=== PATIENT | male | born 1980 | race Caucasian/White ===

== ENCOUNTER 2019-05-25 01:00 | Observation (INO) | payer BC, SELFPAY ==
[2019-05-25] VITALS (20 sets, daily range): BP systolic 107–129; BP diastolic 52–86; PULSE 52–73; RESP 10–20; TEMP 35.7–36.8; O2SAT 94–100; BMI 29.9
--- NOTE | 2019-05-25 | DI.RAD.S_ITS ---
PROCEDURE: XR CHOLANGIOGRAM OPERATIVE INDICATIONS: cholagiogram COMPARISON: None. FINDINGS: Biliary ducts: The surgeon injected contrast into the biliary ducts after cannulation of the cystic duct stump. Visualized intra- and extrahepatic bile ducts are normal in caliber, without strictures. No intraluminal filling defects to suggest retained ductal stones or sludge. No evidence for iatrogenic ductal injury. Duodenum: Contrast flows promptly through the sphincter of Oddi into the duodenum, which appears normal in caliber. IMPRESSION: Expected intraoperative appearance. Dictated by: Iván Sun M.D. on 05/26/2019 at 10:21 Approved by: Iván Sun M.D. on 05/26/2019 at 10:22
--- NOTE | 2019-05-25 | PATH_ITS ---
[facility] Accession Number: [id number] . 01 Material submitted: . gallbladder - GALLBLADDER . 01 Clinical history: . SEVERE ABDOMINAL PAIN . 02 Diagnosis: Gallbladder, Cholecystectomy: Chronic cholecystitis with cholelithiasis. No evidence of dysplasia or malignancy. MRV 05/28/2019 1217 Local . 02 Electronically signed: . Edna Briggs MD, Pathologist NPI- [id number] . 01 Gross description: . Received in formalin, labeled gallbladder, is an intact gallbladder (length-10.0 cm, diameter-3.0 cm) with green smooth shiny serosa and a patent cystic duct. A lymph node (0.5 x 0.4 x 0.2 cm) is identified. The lumen contains dark green viscous bile and multiple bright yellow smooth friable calculi (10.0 x 6.5 x 0.8 cm in aggregate). The mucosa is green, smooth and flat. The wall is up to 0.1 cm thick. No nodules, masses or lesions are identified. Section code: (A1) cystic duct resection margin and two serial sections from the body; (A2)two longitudinal sections from the fundus; (A3) one intact lymph node. ([id number]) /MRV 05/27/2019 1538 Local . 02 Pathologist provided ICD-10: K80.60 . 02 CPT . 513447 Performed at: 01 [facility] [address] [place] [address], [place], [place] [id number] MD Romeo Dela Cruz MD Phone: [phone] Performed at: [facility] [address] [place], [place] [id number] MD Edna Briggs MD Phone: [phone]
--- NOTE | 2019-05-25 01:06 | ED_ITS ---
HPI - Abdominal Pain General Chief Complaint: Abdominal Pain Stated Complaint: severe abdominal pain Time Seen by Provider: 05/25/19 01:00 Source: patient and family Mode of arrival: Ambulatory Limitations: no limitations History of Present Illness HPI narrative: 30-year-old male nonsmoker with noncontributory medical history presents with his significant other in the chief complaint of severe right upper quadrant pain with radiation to his back that started after drinking a beer at 4:00 p.m.. He has had a few episodes of right upper quadrant pain and suspicion of gallbladder disease but no definitive diagnosis. He denies fever, chills or jaundice. He denies any history of surgery MD complaint: abdominal pain Onset (ago): hour(s) Pain Consistency: constant Location: RUQ Severity: moderate Quality: cramping Radiation: back Relieving factors: nothing Exacerbating factors: eating Associated symptoms: nausea Related Data Home Medications Medication Instructions Recorded Confirmed No Known Home Medications 05/25/19 05/25/19 Allergies Allergy/AdvReac Type Severity Reaction Status Date / Time No Known Drug Allergies Allergy Verified 05/25/19 01:25 Review of Systems Constitutional Constitutional: Denies chills, Denies fatigue, Denies fever(s), Denies frequent falls, Denies lethargy and Denies weakness Eyes Eyes: Denies change in vision, Denies eye discharge, Denies irritation and Denies loss of vision ENT Ears, Nose, Mouth, and Throat: Denies change in voice, Denies dizziness, Denies neck pain, Denies sore throat and Denies throat swelling Cardiovascular Cardiovascular: Denies chest pain, Denies irregular heart rhythm, Denies lightheadedness, Denies palpitations, Denies dyspnea, Denies dyspnea on exertion and Denies orthopnea Respiratory Respiratory: Denies cough, Denies dyspnea, Denies dyspnea on exertion and Denies wheezing Gastrointestinal Gastrointestinal: Reports abdominal pain, Denies change in bowel habits, Denies diarrhea, Denies nausea and Denies vomiting Genitourinary Genitourinary: Denies hematuria, Denies flank pain, Denies urinary incontinence and Denies urinary urgency Musculoskeletal Musculoskeletal: Denies back pain, Denies muscle weakness, Denies neck pain, Denies numbness and Denies tingling Integumentary/Breasts Skin/Breast: Denies pruritus, Denies erythema, Denies rash and Denies wounds Neurologic Neurologic: Denies behavioral changes, Denies confusion, Denies dizziness, Denies frequent falls, Denies loss of vision, Denies numbness, Denies tingling and Denies weakness Psychiatric Psychiatric: Denies anxiety, Denies behavioral changes, Denies confusion, Denies depression, Denies homicidal ideation and Denies suicidal ideation Endocrine Endocrine: Denies fatigue, Denies flushing and Denies palpitations Hematologic/Lymphatic Hematologic/Lymphatic: Denies easy bruising Allergic/Immunologic Allergic/Immunologic: Denies urticaria, Denies throat swelling and Denies wheezing PFSH Social History Smoking Status: Never smoker Social History Smoking Status: Never smoker Exam Narrative Exam Narrative: GENERAL: [38] year old patient appears stated age. Well- nourished, well-developed patient, in mild distress. HEAD: Atraumatic. Normocephalic. EYES: Pupils equal round and reactive. Extraocular motions intact. No scleral icterus. No injection or drainage. ENT: Nose without bleeding, purulent drainage. Throat without erythema, tonsi llar hypertrophy or exudate. Airway patent. NECK: Trachea midline. Non tender CARDIOVASCULAR: Regular rate and rhythm without murmurs, gallops, or rubs. RESPIRATORY: Clear to auscultation. Breath sounds equal bilaterally. No wheezes, rales, or rhonchi. GASTROINTESTINAL: Abdomen soft, severe right upper quadrant pain, nondistended. EXTREMITIES: No edema or joint tenderness. BACK: Nontender without deformity or crepitance. No flank tenderness. NEURO: AOx3. SKIN: No rash or erythema of visible areas Initial Vital Signs Initial Vital Signs: Vital Signs Temperature 98.2 F 05/25/19 01:26 Pulse Rate 67 05/25/19 01:26 Respiratory Rate 14 05/25/19 01:26 Blood Pressure 124/86 05/25/19 01:26 Pulse Oximetry 98 05/25/19 01:26 Course Orders Ordered: ED Orders 05/25/19 01:15 Complete Blood Count AUTO DIFF Stat Comprehensive Metabolic Panel Stat Lactate (Lactic Acid) Stat Lipase Stat 05/25/19 01:37 US abdomen limited Stat Hydromorphone HCl (Dilaudid) 0.5 mg IV Q4HR PRN PRN Reason: Pain, Severe (7-10) Sodium Chloride (Normal Saline 0.9%) 1,000 mls @ 150 mls/hr IV CONT JAMES Last Infusion: 05/25/19 02:14 Dose: 400 mls/hr Documented by: Admin: 05/25/19 01:53 Dose: 150 mls/hr Documented by: LONDON Ondansetron HCl (Zofran) 4 mg IV Q4HR PRN PRN Reason: Nausea And Vomiting Discontinued Medications Hydromorphone HCl (Dilaudid) 0.5 mg IV NOW ONE Stop: 05/25/19 01:36 Last Admin: 05/25/19 01:54 Dose: 0.5 mg Documented by: LONDON Piperacillin/Tazobactam/Dextrose (Zosyn) 3.375 gm in 50 mls @ 100 mls/hr IV NOW ONE Stop: 05/25/19 02:28 Last Admin: 05/25/19 02:08 Dose: 100 mls/hr Documented by: LONDON Ondansetron HCl (Zofran) 4 mg IV NOW ONE Stop: 05/25/19 01:36 Last Admin: 05/25/19 01:54 Dose: 4 mg Documented by: LONDON Consultations Consultation #1: Dr. Lord happy to accept, will see patient before 0700 Vital Signs Vital signs: Vital Signs - 8 hr 05/25/19 01:26 Temperature 98.2 F Pulse Rate 67 Respiratory Rate 14 Blood Pressure 124/86 Pulse Oximetry 98 MDM - Abdominal Pain Lab Data Result diagrams: 05/25/19 01:15 05/25/19 01:15 Labs: Lab Results 05/25/19 05/25/19 05/25/19 Range/Units 01:15 01:15 01:15 WBC 6.0 (4.5-11.0) X10^3/uL RBC 4.93 (4.5-5.9) X10^6/uL Hgb 14.4 (13.5-17.5) g/dL Hct 41.9 (41-53) % MCV 85.0 (80-100) fL MCH 29.1 (26-34) PG MCHC 34.3 (30-36) % RDW 12.9 (11.6-14.8) % Plt Count 243 (150-400) X10^3/uL Neut % (Auto) 64.3 (50-75) % Lymph % (Auto) 21.3 L (25-40) % Sharkey % (Auto) 10.2 (3-14) % Eos % (Auto) 3.8 (2-4) % Baso % (Auto) 0.4 (0-2) % Neut # (Auto) 3900 (5839-4898) /uL Lymph # (Auto) 1300 (9906-2576) /uL Sharkey # (Auto) 600 (0-900) /uL Eos # (Auto) 200 (0-450) /uL Baso # (Auto) 0 (0-100) /uL Sodium 139 (137-145) mmol/L Potassium 4.0 (3.4-5.1) mmol/L Chloride 105 (98-107) mmol/L Carbon Dioxide 24 (22-32) mmol/L BUN 14 (9-20) mg/dL Creatinine 0.70 (0.66-1.25) mg/dL Estimated GFR > 60.0 (>60) mL/min BUN/Creatinine Ratio 20.0 (6-22) Glucose 129 H (70-100) mg/dL Lactate 1.1 (0.7-2.1) mmol/L Calcium 9.3 (8.4-10.2) mg/dL Total Bilirubin 2.2 H (0.2-1.3) mg/dL AST 439 H (17-59) IU/L ALT 330 H (21-72) IU/L Alkaline Phosphatase 66 (38-126) U/L Total Protein 7.3 (6.3-8.2) g/dL Albumin 4.2 (3.5-5.0) g/dL Globulin 3.1 (1.7-4.1) g/dL Albumin/Globulin Ratio 1.4 (1.0-2.8) Lipase 90 (23-300) U/L Imaging Data US - abdomen: Radiologist's impression: GB with multiple stones, non moving. No wall thickening Discharge Plan Departure Patient Disposition: Admitted As Inpatient Clinical Impression: Cholelithiasis Qualifiers: Cholelithiasis location: other site Biliary obstruction: with biliary obs truction Qualified Code(s): K80.81 - Other cholelithiasis with obstruction Admit Date/Time: 05/25/19 02:00 Admit Provider: Alex Lord
[2019-05-25 01:31] LABS: Add Manual Diff / Slide Review NO; Basophils Absolute Auto 0 /uL (0-100); Basophils Percent Auto 0.4 % (0-2); Eosinophils Absolute Auto 200 /uL (0-450); Eosinophils Percent Auto 3.8 % (2-4); Hematocrit 41.9 % (41-53); Hemoglobin 14.4 g/dL (13.5-17.5); Lymphocytes Absolute Auto 1300 /uL (1100-4500); Lymphocytes Percent Auto 21.3 % (25-40); Mean Corpuscular HGB Conc 34.3 % (30-36); Mean Corpuscular Hemoglobin 29.1 PG (26-34); Monocytes Absolute Auto 600 /uL (0-900); Monocytes Percent Auto 10.2 % (3-14); Neutrophils Absolute Auto 3900 /uL (1500-7000); Neutrophils Percent Auto 64.3 % (50-75); Platelet Count 243 X10^3/uL (150-400); Red Blood Cell Count 4.93 X10^6/uL (4.5-5.9); Red Cell Distribution Width 12.9 % (11.6-14.8)
[2019-05-25 01:37] LABS: Lactate (Lactic Acid) 1.1 mmol/L (0.7-2.1)
--- NOTE | 2019-05-25 01:37 | DI.US.S_ITS ---
PROCEDURE: US ABDOMEN LIMITED INDICATIONS: POST PRANDIAL RIGHT UPPER QUADRANT PAIN TECHNIQUE: Real-time focused scanning was performed of the abdomen, with image documentation. COMPARISON: None. FINDINGS: Liver is sonographically normal. Numerous non-mobile gallstones are noted in the gallbladder. There is a 1.2 cm stone in the gallbladder neck which is nonmobile. No gallbladder wall thickening with gallbladder wall measuring 1.4 mm. No pericholecystic fluid. Positive sonographic Thomas sign noted. Biliary tree is nondilated with, bile duct measuring 4.4 mm. Pancreas is sonographically normal. IMPRESSION: Cholelithiasis including a 1.2 cm nonmobile stone in the gallbladder neck. No sonographic evidence of cholecystitis identified in the current study although positive sonographic Thomas sign is reported. If there is clinical concern for cholecystitis, then nuclear medicine HIDA scan should be considered for further evaluation. Dictated by: Misty Pope MD, PhD on 05/25/2019 at 8:29 Approved by: Misty Pope MD, PhD on 05/25/2019 at 8:32
[2019-05-25 01:38] LABS: Alanine Aminotransferase 330 IU/L (21-72); Albumin 4.2 g/dL (3.5-5.0); Albumin Globulin Ratio 1.4 (1.0-2.8); Alkaline Phosphatase 66 U/L (38-126); Aspartate Aminotransferase 439 IU/L (17-59); Bilirubin Total 2.2 mg/dL (0.2-1.3); Blood Urea Nitrogen 14 mg/dL (9-20); Calcium 9.3 mg/dL (8.4-10.2); Carbon Dioxide 24 mmol/L (22-32); Chloride 105 mmol/L (98-107); Estimated Glomerular Filt Rate > 60.0 mL/min (>60); Globulin 3.1 g/dL (1.7-4.1); Glucose 129 mg/dL (70-100); HEMOLYSIS < 15 (0-50); Lipase 90 U/L (23-300); Sodium 139 mmol/L (137-145); Total Protein 7.3 g/dL (6.3-8.2)
[2019-05-25] MEDS: SODIUM CHLORIDE 0.9% 1,000 ML 150 ML IV ×3 (01:53→14:12)
[2019-05-25] MEDS: ONDANSETRON 4 MG/2 ML INJ IV (01:54)
[2019-05-25] MEDS: HYDROMORPHONE 0.5 MG INJ IV (01:54)
[2019-05-25] MEDS: PIPERACILLIN-TAZO 3.375 GM/50 ML FROZ.PIGGY IV ×2 (02:08→19:26)
--- NOTE | 2019-05-25 06:47 | PC.NURSE ---
Pt admitted to unit as AxOx3, vitals stable. NS@150mL/hr running as ordered. Pain and nausea was controlled with the dilaudid given in the ER; pt denying need for pain med this morning. Independent in room. Kept NPO
[2019-05-25] MEDS: MORPHINE 2 MG/ML INJ IV ×2 (07:35→18:47)
--- NOTE | 2019-05-25 12:15 | PM.HP.1 ---
History of Present Illness History of Present Illness Date Patient Seen: 05/25/19 Time Patient Seen: 12:18 Chief complaint: severe abdominal pain Narrative: 38-year-old male history of biliary colic presents emergency room with acute onset of abdominal pain. He has been having frequent epigastri/RUQ pain following meals. Yesterday developed persistent right upper quadrant pain associated with nausea no vomiting or diarrhea. Occurred after eating fatty meal has improved somewhat with pain medication. Patient History Social History Smoking Status: Never smoker Family & Social History Social History: Prior Living Arrangements House Safety & Behavioral: Feels Safe in Current Yes Environment Been Physically Hurt or No Threatened By a Person Suicidal Ideation Description None Suicide Plan Description No Plan Tobacco & Substance use: Smoking Status Never smoker alcohol intake frequency a few times a week Substance Use Type does not use Meds Home Medications and Allergies Home Medications Medication Instructions Recorded Confirmed Type No Known Home Medications 05/25/19 05/25/19 History Allergies Allergy/AdvReac Type Severity Reaction Status Date / Time No Known Drug Allergies Allergy Verified 05/25/19 01:25 Review of Systems Review of Systems ROS Unobtainable: All systems reviewed & are unremarkable except as noted in HPI and below Exam Vital Signs (past 8 hours): - 05/25/19 07:47 05/25/19 08:37 05/25/19 12:00 Temperature 97.9 F 98.1 F Pulse Rate 56 L 64 Respiratory Rate 16 16 16 Blood Pressure 110/69 129/68 Pulse Oximetry 96 97 Oxygen Delivery Method Room Air Narrative Exam Narrative: General-adult male no acute distress, well nourished HEENT-moist mucous membranes, no scleral icterus Neck-supple with full range of motion, no lymphadenopathy Chest- no labored respirations, clear to auscultation bilaterally Cardiac-regular rate and rhythm Abdomen +Thomas's sign. No gaurding Extremities-no edema, warm well perfused Neurological-alert and oriented x 3. No focal deficits Skin-normal temperature and turgor, no rashes or ulcers Objective Labs Result Diagrams: 05/25/19 01:15 05/25/19 01:15 Labs: Laboratory Results - last 24 hr 05/25/19 05/25/19 05/25/19 01:15 01:15 01:15 WBC 6.0 RBC 4.93 Hgb 14.4 Hct 41.9 MCV 85.0 MCH 29.1 MCHC 34.3 RDW 12.9 Plt Count 243 Neut % (Auto) 64.3 Lymph % (Auto) 21.3 L [place] % (Auto) 10.2 Eos % (Auto) 3.8 Baso % (Auto) 0.4 Neut # (Auto) 3900 Lymph # (Auto) 1300 [place] # (Auto) 600 Eos # (Auto) 200 Baso # (Auto) 0 Sodium 139 Potassium 4.0 Chloride 105 Carbon Dioxide 24 BUN 14 Creatinine 0.70 Estimated GFR > 60.0 BUN/Creatinine Ratio 20.0 Glucose 129 H Lactate 1.1 Calcium 9.3 Total Bilirubin 2.2 H AST 439 H ALT 330 H Alkaline Phosphatase 66 Total Protein 7.3 Albumin 4.2 Globulin 3.1 Albumin/Globulin Ratio 1.4 Lipase 90 Assessment & Plan Assessment and plan (1) Acute cholecystitis: Current visit: Yes Status: Acute Assessment & Plan narrative: 30-year-old male with a history of biliary colic presents to the emergency room with acute cholecystitis. He has right upper quadrant pain with positive Thomas sign and an ultrasound demonstrating multiple gallstones including within the neck of the gallbladder. -NPO -Zosyn -Laparoscopic cholecystectomy today. We discussed the risks of the operation including bleeding infection need for conversion to open procedure need for further procedure or operation. His questions have been answered and he is agreement with this plan
[2019-05-25 12:47] LABS: Alanine Aminotransferase 574 IU/L (21-72); Albumin 4.1 g/dL (3.5-5.0); Albumin Globulin Ratio 1.3 (1.0-2.8); Alkaline Phosphatase 82 U/L (38-126); Aspartate Aminotransferase 561 IU/L (17-59); BUN Creatinine Ratio 15.7 (6-22); Bilirubin Total 3.6 mg/dL (0.2-1.3); Blood Urea Nitrogen 11 mg/dL (9-20); Calcium 8.9 mg/dL (8.4-10.2); Carbon Dioxide 28 mmol/L (22-32); Chloride 107 mmol/L (98-107); Estimated Glomerular Filt Rate > 60.0 mL/min (>60); Globulin 3.1 g/dL (1.7-4.1); Glucose 103 mg/dL (70-100); HEMOLYSIS < 15 (0-50); Potassium 4.3 mmol/L (3.4-5.1); Sodium 139 mmol/L (137-145); Total Protein 7.2 g/dL (6.3-8.2)
--- NOTE | 2019-05-25 12:56 | PC.NURSE ---
Day Shift- Pt A&OX4, able to make needs known using call light. Indep in room with steady gait. Ambulated in halls indep using IV pole with his girlfriend Akua by his side. Pain 10 this AM to SUHAS Barajsa, requesting med. PRN Morphine given at 0735 with good effect. Denies nausea. NPO, mouth swabs and lip balm given. Last solid foods was 05/24 at 1600 as well as liquids. Voiding qs. Aware of potential OR time of 1700 today.
--- NOTE | 2019-05-25 15:14 | CM.DANOTE ---
Discharge Planning/Care Management DCP: assessment: case received, EMR reviewed and case discussed in Team Rounds. 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 Surgery is planned for this afternoon: planning for a laproscopic cholecystectomy. P: Check in with pt tomorrow prn and follow for any d/c needs that may arise CM Discharge Assessment Start: 05/25/19 15:11 Freq: Status: Active Protocol: Document 05/25/19 15:13 ITV (Rec: 05/25/19 15:13 ITV [id number]) Discharge Planning Assessment Advance Directives? No History Provided By Medical Record Prior Living Arrangements House Independent with ADL's Yes Is patient alert and oriented? Yes Review Status In Process
[2019-05-25] MEDS: LACTATED RINGERS 1,000 ML 42 ML IV (19:15)
--- NOTE | 2019-05-25 19:56 | SUR.OPER ---
Supine on padded OR bed, head on pillow, arms secured on padded arm boards at <90 degrees abduction, legs uncrossed, safety belt at thigh, tape over blanket over lower legs.
[2019-05-25] MEDS: IOPAMIDOL 15 ML VIAL INJ (20:03)
[2019-05-25] MEDS: BUPIVACAINE 0.5% (PF) VIAL 30 ML INJ (20:04)
--- NOTE | 2019-05-25 20:58 | PM.OP.1 ---
Operative Date/Time/Diagnoses Date of procedure: 05/25/19 Time of procedure: 20:58 Pre-op diagnosis: Acute cholecystitis Hyperbilirubinemia Post-op diagnosis: same Procedure & Clinicians Procedure: Laparoscopic cholecystectomy with intraoperative cholangiogram Same procedure as scheduled: Yes Indications: 38-year-old male with history of biliary colic admitted with acute cholecystitis. He had hyperbilirubinemia there was no stone identified within the common bile duct or ductal dilatation however there was a stone lodged within the neck of the gallbladder. Surgeon: Alex Lord Click Yes if Unassisted: Yes Anesthesia Type: General Operative Notes Findings: No evidence of common bile duct obstruction by cholangiogram Specimen(s): other (Gallbladder) Estimated Blood Loss (mL): 10 Procedure in detail: The patient was brought to the operating room placed supine on the table. Bilateral lower extremity compression devices were applied. General anesthesia was induced and they were intubated with an endotracheal tube. They received 3.75 g of Zosyn prior to skin incision. A time-out was performed to ensure the correct patient procedure necessary equipment within the operating room. They were then prepped and draped in the usual sterile fashion. Infraumbilical incision was made the umbilical stalk was grasped and elevated and the fascia was sharply incised. The abdomen was entered atraumatically. A 10 mm trocar was then placed into the abdomen. Pneumoperitoneum was established. The laparoscopic camera was inserted into the abdomen inspection was made that demonstrated no evidence of injury upon entry. We then placed our working ports the 1st 5 mm port high in the epigastrium and then 2 in the right upper quadrant. The gallbladder was grasped and retracted over the liver and grasped laterally by the fundus. The triangle of Calot was exposed. The triangle of calot was then skeletonized using hook electrocautery and demonstrated the cystic duct clearly entering the gallbladder the cystic artery and the liver and in the background. The cystic duct was sharply transected and the cholangiogram catheter was placed into the cystic duct. Saline flushed easily and then contrast was injected that filled both branches of the liver and through the common bile duct into the duodenum without obstruction. The cystic duct was then clipped twice proximally. The cystic artery was taken in the same fashion. Next the gallbladder was removed from the liver bed using electro cautery. The liver bed was then inspected for hemostasis and this was achieved. The abdomen was irrigated with sterile saline and inspection was made that showed the clips in good position. The specimen was removed using Endo-Catch. The abdomen was desufflated. The the fascia of the umbilicus was closed with 0 Vicryl in a [id number] fashion. Skin incisions were irrigated and closed with 4-0 Monocryl. The wounds were sealed with Dermabond. Patient emerged from general anesthesia was extubated and transferred to the postoperative care unit missed stable condition. The sponge and instrument count at the end of the operation was correct. Complications: none Post-operative Condition: stable Disposition: observation
[2019-05-25] MEDS: fentaNYL 100 MCG/2 ML INJ 50 MCG IV ×2 (21:23→21:30)
[2019-05-25] MEDS: OXYCODONE IR 5 MG TABLET PO (21:33)
[2019-05-26 00:05] VITALS: BP 118/63; PULSE 70; RESP 16; TEMP 36.6; O2SAT 95
[2019-05-26 01:05] VITALS: BP 122/65; PULSE 61; RESP 16; TEMP 36.9; O2SAT 99
[2019-05-26 04:00] VITALS: BP 114/70; PULSE 74; RESP 74; TEMP 36.5; O2SAT 96
[2019-05-26 05:26] LABS: Alanine Aminotransferase 548 IU/L (21-72); Albumin 3.9 g/dL (3.5-5.0); Albumin Globulin Ratio 1.3 (1.0-2.8); Alkaline Phosphatase 105 U/L (38-126); Aspartate Aminotransferase 339 IU/L (17-59); BUN Creatinine Ratio 14.3 (6-22); Blood Urea Nitrogen 10 mg/dL (9-20); Calcium 9.2 mg/dL (8.4-10.2); Carbon Dioxide 26 mmol/L (22-32); Chloride 105 mmol/L (98-107); Estimated Glomerular Filt Rate > 60.0 mL/min (>60); Globulin 2.9 g/dL (1.7-4.1); Glucose 167 mg/dL (70-100); HEMOLYSIS < 15 (0-50); Potassium 4.7 mmol/L (3.4-5.1); Sodium 139 mmol/L (137-145); Total Protein 6.8 g/dL (6.3-8.2)
[2019-05-26] MEDS: OXYCODONE IR 5 MG TABLET PO (06:05)
[2019-05-26] MEDS: SODIUM CHLORIDE 0.9% 1,000 ML 150 ML IV (06:07)
[2019-05-26 07:30] VITALS: O2SAT 100
[2019-05-26 07:55] VITALS: BP 112/67; PULSE 89; RESP 16; TEMP 36.8; O2SAT 95
--- NOTE | 2019-05-26 08:17 | PM.DS.1 ---
History of Present Illness History of Present Illness Chief complaint: severe abdominal pain Narrative: 38-year-old male history of biliary colic presents emergency room with acute onset of abdominal pain. He has been having frequent epigastri/RUQ pain following meals. Yesterday developed persistent right upper quadrant pain associated with nausea no vomiting or diarrhea. Occurred after eating fatty meal has improved somewhat with pain medication. Discharge Providers Provider Date of admission: 05/25/19 02:00 Discharge Date: 05/26/19 Discharge provider: Alex Lord MD Summary Hospital Course Discharge Diagnosis: Acute cholecystitis Hospital Course: 30-year-old male underwent a laparoscopic cholecystectomy for acute cholecystitis. He had a gallstone within the neck of the gallbladder that was providing external compression of the common bile duct and had some mild hyperbilirubinemia on admission. Cholangiogram demonstrated no obstruction within the common bile duct. On the date of discharge he is tolerating a diet his pain is well controlled and his total bilirubin is declining. Status at Discharge Cognitive/behavioral status at discharge: oriented Functional status at discharge: independent ambulation Overall status at discharge: patient is back to baseline Time Spent with Patient Time spent: Greater than 30 minutes Exam Vital Signs (past 8 hours): - 05/26/19 01:05 05/26/19 04:00 Temperature 98.5 F 97.7 F Pulse Rate 61 74 Respiratory Rate 16 74 H Blood Pressure 122/65 114/70 Pulse Oximetry 99 96 Oxygen Delivery Method Nasal Cannula Oxygen Flow Rate 2 Objective Labs Result Diagrams: 05/25/19 01:15 05/26/19 05:05 Labs: Laboratory Results - last 24 hr 05/25/19 05/26/19 12:26 05:05 Sodium 139 139 Potassium 4.3 4.7 Chloride 107 105 Carbon Dioxide 28 26 BUN 11 10 Creatinine 0.70 0.70 Estimated GFR > 60.0 > 60.0 BUN/Creatinine Ratio 15.7 14.3 Glucose 103 H 167 H Calcium 8.9 9.2 Total Bilirubin 3.6 H 3.0 H AST 561 H 339 H ALT 574 H 548 H Alkaline Phosphatase 82 105 Total Protein 7.2 6.8 Albumin 4.1 3.9 Globulin 3.1 2.9 Albumin/Globulin Ratio 1.3 1.3 Discharge Plan Discharge Plan Patient Disposition: Home Discharge Med Rec/Prescriptions Prescriptions: New ibuprofen 200 mg tablet 800 mg PO Q6H PRN (Reason: pain) Qty: 60 RF: 0 oxycodone 5 mg tablet 5 mg PO Q6H PRN (Reason: pain) Qty: 30 RF: 0 acetaminophen [Tylenol] 325 mg capsule 650 mg PO QID PRN (Reason: pain) Qty: 60 RF: 0 docusate sodium [Colace] 100 mg capsule 100 mg PO DAILY Qty: 30 RF: 0 Follow up/Referrals: Alex Lord MD [Physician] - Provider Discharge Instructions Diet: Low-fat Activity: No lifting >20 lbs x 4 weeks. Walking only for exercise for 4 weeks[address] while taking narcotics. Skin/Wound/Dressing Care Report to your healthcare provider any signs of infection, such as:: chills, fever, increased pain and unusual drainage Visit Report/Discharge Packet Instructions: DI for Cholecystectomy Discharge Data Attending Provider: Alex Lord Admit Date/Time: 05/25/19 02:00
--- NOTE | 2019-05-26 10:14 | PC.NURSE ---
Discharge: Pt feels ready for d/c home. Vds w/out diff. Up and amb in hallway long distance. Gait is steady, no dizziness. Diet tolerated w/out problems, no nausea. Reviewed wound care instructions. Seen by Dr. Lord prior to leaving and he gave d/c instructions. Discussed weight limits, diet. Spouse present at time of teaching. Given rx, questions answered. Pt d/c home via auto w/spouse.
== END 2019-05-26 10:30 | disposition home or self-care (01) ==
LOC: ED 01:59 → AC 09:14
PROVIDERS: Admitting Provider Surgery; Emergency Provider Emergency Medicine; Visit Provider Surgery
PROC: 0FT44ZZ Resection of Gallbladder, Percutaneous Endoscopic Approach (ICD-10-PCS; CPT 47562; principal; 2019-05-25 19:50)
DX: K80.10 Calculus of gallbladder with chronic cholecystitis without obstruction (principal); R10.11 Right upper quadrant pain
CPT/HCPCS: 47563; 36415; 74300; 76000; 76705; 80053; 83605; 83690; 85025; 96361; 96365; 96375; 96376; 99219; 99283; 99284; G0378; J0330; J1100; J1170; J1885; J2250; J2270; J2405; J2543; J2704; J3010

== ENCOUNTER 2022-11-27 23:52 | Emergency (ER) | payer BC, SELFPAY ==
[2019-05-25 02:07] VITALS: BMI 29.9
[2022-11-28 00:09] VITALS: BP 138/96; PULSE 74; RESP 17; TEMP 36.6; O2SAT 95; BMI 33.5
[2022-11-28] MEDS: HYDROCODONE/ACET 5/325 PREPACK 1 BOTTLE MISC (01:01)
[2022-11-28 01:04] VITALS: BP 188/78; PULSE 86; RESP 19; O2SAT 97
--- NOTE | 2022-11-28 06:44 | ED_ITS ---
HPI - Dental/Oral General Chief complaint: Dental/Oral Stated complaint: Upper lt. molar tooth pain Time Seen by Provider: 11/28/22 00:16 Source: patient Mode of arrival: Ambulatory History of Present Illness HPI Narrative: 42-year-old male nonsmoker with noncontributory medical history presents with a chief complaint of left upper tooth pain that has been worsening over the past few days. He denies any trauma or injury nor any tooth fracture. He states that he was seen and evaluated by an outside provider and started on amoxicillin yesterday. He has been in the process of trying to establish with a dentist but has thus far lb successful. He denies any fever or chills. He is had no facial swelling. He states it hurts worse to chew, eat hot or cold liquids and is experiencing little relief from Tylenol or Motrin Related Data Previous Rx's Medication Instructions Recorded acetaminophen 325 mg capsule 650 mg PO QID PRN pain #60 caps 05/26/19 (Tylenol) docusate sodium 100 mg capsule 100 mg PO DAILY #30 caps 05/26/19 (Colace) ibuprofen 200 mg tablet 800 mg PO Q6H PRN pain #60 tabs 05/26/19 oxycodone 5 mg tablet 5 mg PO Q6H PRN pain #30 tabs 05/26/19 hydrocodone 5 mg-acetaminophen 325 1 tab PO Q4-6H PRN pain #10 tabs 11/28/22 mg tablet ketorolac 10 mg tablet 10 mg PO Q6H PRN pain #14 tabs 11/28/22 Allergies Allergy/AdvReac Type Severity Reaction Status Date / Time No Known Drug Allergies Allergy Verified 06/09/19 09:14 Review of Systems Review of Systems Narrative: GENERAL: Denies chills, fatigue, malaise, fever, sweats. HEENT: See HPI RESPIRATORY: Denies dyspnea, cough, wheezing, hemoptysis, sputum. CARDIOVASCULAR: Denies chest pain, palpitations, orthopnea, edema, GASTROINTESTINAL: Denies nausea, vomiting, abdominal pain, diarrhea, constipation, melena. : Denies dysuria, frequency, incontinence, hematuria, urinary retention. MUSCULOSKELETAL: denies weakness, joint pain, or bony pain SKIN: Denies rash, skin lesions, or other NEUROLOGIC: Denies weakness, headache, numbness, change in speech, confusion, seizures, incoordination. PSYCHIATRIC: No concerning psychosocial issues. 12 point review of systems is negative except for those stated above Patient History Social History Smoking Status: Never smoker Smoking Status: Never smoker alcohol intake frequency: a few times a week Substance Use Type: does not use Exam Narrative Exam Narrative: GEN: AOx3 and in mild distress EYES: Pupils are equal, round, and reactive to light and accommodation. Extraoccular muscles are intact bilaterally. There is no subconjunctival hemorrhage or exudate. ENT: No obvious facial swelling, no significant intraoral abnormalities, no swelling, dental fracture or fluctuant mass suggestive of abscess CHEST: Lungs are clear to auscultation bilaterally and free of wheezes, rales, or rhonchi. Heart rate is regular rhythm, there are no murmurs, clicks, rubs, or gallops. There is no chest wall tenderness. ABD: Abdomen is soft and nontender. There is no guarding or rebound. Bowel sounds are normal in all 4 quadrants. There is no mass or organomegaly. EXT: Full painless ROM of all extremities with no loss of sensation or strength. SKIN: Warm, pink, and dry. No erythema or rash Initial Vital Signs Initial Vital Signs: Vital Signs Temperature 97.8 F 11/28/22 00:09 Pulse Rate 74 11/28/22 00:09 Respiratory Rate 17 11/28/22 00:09 Blood Pressure 138/96 H 11/28/22 00:09 Pulse Oximetry 95 11/28/22 00:09 Oxygen Delivery Method Room Air 11/28/22 00:09 Procedures Nerve Block Nerve Block 1: Time out performed: Yes Local Anesthetic: lidocaine 2% and with epi Amount of anesthesia used (mL): 4 Side: left Nerve Blocks: digital Intraoral Nerve Block: superior alveolar Procedure Successful: Yes Patient Tolerated Procedure: Well Complications: none Course Orders Ordered: Discontinued Medications Hydrocodone Bitart/Acetaminophen (Hydrocodone/Acet 5/325 Prepack) 1 bottle MISC SEEINSTR ONE Stop: 11/28/22 00:55 Last Admin: 11/28/22 01:01 Dose: 1 bottle Documented By: BILL Vital Signs Vital signs: Vital Signs - 8 hr 11/28/22 00:09 11/28/22 01:04 Temperature 97.8 F Pulse Rate 74 86 Respiratory Rate 17 19 Blood Pressure 138/96 H 188/78 H Pulse Oximetry 95 97 Oxygen Delivery Method Room Air Room Air MDM - Dental/Oral MDM Narrative Medical decision making narrative: [42] year old patient presents with dental pain in the absence of injury or facial swelling, already on antibiotics Multiple etiologies for patient's symptoms considered including, but not limited to: [Dental mikel, dental abscess versus other] Prior Charts reviewed in our EMR Primary Historian: patient Patient's symptoms improved over duration of stay with above-stated therapies. Findings and discharge diagnosis discussed with patient/family followed by verbalization of understanding Return precautions discussed with patient/family whom verbalize understanding of diagnosis and plan Discharge Plan Departure Patient Disposition: Home Clinical Impression: Toothache Instructions: DI for Dental Pain Activity Restrictions/Additional Instructions: *You have been diagnosed with [dental pain, no obvious abscess, infection or fracture.] *What to do: *Please continue to take your regular medications as directed. [x ] New medication prescriptions sent to your pharmacy: [[facility]] [ ] New medication written as a paper prescription [ ] No new medications given *Please follow up with your primary care provider in 2-3 days, call for an appointment. Let them know you were seen in the Emergency Department and that we ask that you be seen in follow up. We will electronically transmit a record of today's note if your PCP is in our system *If you do not have a primary care provider please contact the [facility] Resource line at [phone]. They will ask some questions about your medical history and help get you set up with a doctor in the community. *Return to Emergency Department if you should have any new, worsening or concerning symptoms, such as [fever greater than 101 F, shaking chills, worsening pain, persistent vomiting or other bothersome symptoms] You have been prescribed a short course of narcotic medications. These are potentially dangerous and addictive medications that should be used carefully. While on these medications you cannot drive or operate heavy machinery. Additionally, you cannot sign legal documents or perform any duties such as this. Many people get constipated on narcotic medications so it would be adv isable to discuss stool softeners with the pharmacist when you lease picker your prescription. Please understand that we cannot provide further refills of narcotics or controlled substances through the ED and your pain management will need to be through your Primary Care Provider Prescriptions: New hydrocodone-acetaminophen 5-325 mg tablet 1 tab PO Q4-6H PRN (Reason: pain) Qty: 10 0RF ketorolac 10 mg tablet 10 mg PO Q6H PRN (Reason: pain) Qty: 14 0RF No Action ibuprofen 200 mg tablet 800 mg PO Q6H PRN (Reason: pain) Qty: 60 0RF oxycodone 5 mg tablet 5 mg PO Q6H PRN (Reason: pain) Qty: 30 0RF acetaminophen [Tylenol] 325 mg capsule 650 mg PO QID PRN (Reason: pain) Qty: 60 0RF docusate sodium [Colace] 100 mg capsule 100 mg PO DAILY Qty: 30 0RF Referrals: Olivia,Fabián, CRIS [Physician] - Stand Alone Forms: Patient Portal/API, Work Release Note
== END 2022-11-28 01:07 | disposition home or self-care (01) ==
PROVIDERS: Emergency Provider Emergency Medicine
DX: K08.89 Other specified disorders of teeth and supporting structures (principal)
CPT/HCPCS: 64450; 99281; 99283